=== PATIENT | male | born 1955 ===

== ENCOUNTER 2017-05-21 08:44 | Inpatient (IN) | payer OTHER ==
[2017-05-17 12:08] VITALS: BMI 27.1
[2017-05-21] MEDS ORDERED: THROMBIN (BOVINE) 5,000 UNIT VIAL TP ONE ×4 (12:35→16:39)
[2017-05-21] MEDS ORDERED: HEPARIN NA (PORCINE) 5,000 UNITS/ML 1ML VIAL ONE (12:35)
[2017-05-21] MEDS ORDERED: MIDAZOLAM HCL 2 MG/2 ML SINGLE DOSE VIAL ONE (12:42)
[2017-05-21] MEDS ORDERED: fentaNYL CITRATE 250 MCG/5 ML VIAL ONE ×4 (12:42→15:34)
[2017-05-21] MEDS ORDERED: SUCCINYLCHOLINE CHLORIDE 200 MG/10 ML VIAL ONE (12:42)
[2017-05-21] MEDS ORDERED: PROPOFOL 20 ML ONE ×9 (12:42→15:41)
[2017-05-21] MEDS ORDERED: ONDANSETRON 4 MG/2 ML VIAL ONE (12:44)
[2017-05-21] MEDS ORDERED: DEXAMETHASONE SOD PHOSPHATE 4 MG/1 ML VIAL ONE ×2 (12:44→14:35)
[2017-05-21] MEDS ORDERED: LIDOCAINE HCL/PF 2% SDV 5ML VIAL ONE (12:44)
[2017-05-21] MEDS ORDERED: VANCOMYCIN 1,000 MG VIAL (RESTRICTED TO ID ONLY) IVPB ONE (13:00)
[2017-05-21] MEDS ORDERED: ceFAZolin SODIUM 1 GM VIAL IVPB ONE (14:00)
[2017-05-21] MEDS ORDERED: TRANEXAMIC ACID 1000 MG/10 ML VIAL ONE (14:00)
[2017-05-21] MEDS ORDERED: ceFAZolin SODIUM 1 GM VIAL ONE ×2 (14:00→16:34)
[2017-05-21] MEDS ORDERED: VANCOMYCIN 1,000 MG VIAL (RESTRICTED TO ID ONLY) ONE (14:00)
[2017-05-21] MEDS ORDERED: ROCURONIUM BROMIDE 50 MG/5 ML VIAL ONE (14:57)
[2017-05-21] MEDS ORDERED: LABETALOL HCL 5 MG/1 ML (100MG/20 ML VIAL) ONE (15:34)
[2017-05-21] MEDS ORDERED: NEOSTIGMINE METHYLSULFATE 0.5 MG/ML - 10 ML MDV ONE (15:38)
[2017-05-21] MEDS ORDERED: GLYCOPYRROLATE 0.2 MG/1 ML VIAL ONE ×2 (15:39→16:07)
[2017-05-21] MEDS ORDERED: GELATIN, ABSORBABLE 100 EACH SPONGE TP ONE (15:39)
[2017-05-21] MEDS ORDERED: HYDROmorphone *PCA* 6MG/30ML DISP.SYRIN PCA ONE (18:32)
--- NOTE | 2017-05-21 18:34 | OP ---
Operative Note - Note: Operative Date: 05/21/17 Pre-Operative Diagnosis: Adjacent level thoracolumbar spinal stenosis. Lumbosacral instability Operation: 1. ESSIE L2-L4. 2. T12, L1 laminectomies. 3. T10-S1 PISF Post-Operative Diagnosis: Same as Pre-op Surgeon: Marbin Lee Head Doffer: Pedro Lee (Co-Surgeon) Anesthesiologist/RAILROAD SIGNAL OPERATOR: Carrillo Stubbs Anesthesia: General Specimens Removed: L2-L4 Hardware Estimated Blood Loss (mls): 600 Drains & Tubes with Location: 1 x deep & 1 x superficial HemoVac. 1 shared HemoVac reservoir Blood Volume Replaced (mls): 250 (Cell Saver) Fluid Volume Replaced (mls): 2,300 (Crystalloid) Operative Report Dictated: Yes
[2017-05-21] MEDS ORDERED: ONDANSETRON 4 MG/2 ML VIAL IVPUSH PRN ×2 (18:36→18:37)
[2017-05-21] MEDS ORDERED: PROMETHAZINE HCL 25 MG/1 ML VIAL IVPB PRN (18:36)
[2017-05-21] MEDS ORDERED: DEXAMETHASONE SOD PHOSPHATE 4 MG/1 ML VIAL IVPUSH PRN (18:36)
--- NOTE | 2017-05-21 18:37 | PN ---
Progress Note (short form) - Note Progress Note: 62M s/p ESSIE L2-L4, T12 & L1 laminectomies, T10-S1 PISF POD #0. 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 -Mechanical DVT PPx. only: COURT's, SCD's. -Incentive spirometry; aggressive pulmonary toilet. -NPO until flatus, then advance diet as tolerated. -Wilhelm catheter care; d/c Wilhelm catheter when ambulating. -Yodit-op abx. x 24 hrs: Ancef, Vancomycin. -PT/OT/Rehab, OOB. -WBAT B/L LE. -Admit to ICU post-op. -Care per medical hospitalist team. -Discharge planning. -Will follow. Marbin Lee MD (Orthopaedic Surgery).
[2017-05-21] MEDS ORDERED: HYDROmorphone *PCA* 6MG/30ML DISP.SYRIN PCA SCH (18:45)
[2017-05-21] MEDS ORDERED: KETOROLAC TROMETHAMINE 15 MG/ML VIAL ONE (19:08)
[2017-05-21] MEDS ORDERED: ACETAMINOPHEN INJECTION 100 ML IVPB ONE (19:09)
[2017-05-21] MEDS: KETOROLAC TROMETHAMINE 30 MG/1 ML VIAL IVPUSH PRN (19:12)
[2017-05-21] MEDS: ACETAMINOPHEN 1000 MG/100 ML VIAL (NON FORMULARY) IVPB SCH (19:15)
[2017-05-21] MEDS: LORazepam 2 MG/ML SDV VIAL IVPUSH PRN ×2 (19:20→21:17)
[2017-05-21] MEDS: LACTATED RINGERS SOLUTION 1,000 ML IV SCH (19:50)
[2017-05-21] MEDS ORDERED: HYDROmorphone HCL CARPU-JECT 1 MG/1 ML DISP.SYRIN IVPUSH PRN (21:00)
--- NOTE | 2017-05-21 21:14 | CONSULT ---
Consult Consult Specialty:: Pulmonary Critical Care Reason for Consultation:: Post op monitoring - History of Present Illness History of Present Illness: Pt is a 62 yo with h/o adjacent level thoracolumbar spinal stenosis who is admitted to the ICU post ESSIE L2-L4, T12 and L1 laminectomies, T10-S1 PISF. Admitted to ICU for close monitoring, hemodynamically stable in the ICU, pain. Additional pain management ordered. Active Medications Acetaminophen (Ofirmev Injection -) 1,000 mg IVPB Q8H [facility] Stop: 05/22/17 10:46 Last Admin: 05/21/17 19:15 Dose: 1,000 mg Dexamethasone Sodium Phosphate (Decadron Injection -) 4 mg IVPUSH ONCE PRN PRN Reason: NAUSEA AND/OR VOMITING Diphenhydramine HCl (Benadryl Injection -) 12.5 mg IVPUSH ONCE PRN PRN Reason: FOR ITCHING Hydromorphone HCl (Dilaudid Senior Label Specialist -) 0 mg JITTERBUG OPERATOR JITTERBUG OPERATOR RAY PRN Reason: Protocol Stop: 05/28/17 18:36 Last Admin: 05/21/17 18:45 Dose: 6 mg Hydromorphone HCl (Dilaudid Injection -) 0.5 mg IVPUSH Q4H PRN PRN Reason: PAIN Cefazolin Sodium (Ancef 1 Gm Premixed Ivpb -) 1 gm in 50 mls @ 100 mls/hr IVPB Q8H [facility] Stop: 05/23/17 07:59 Lactated Ringer's (Lactated Ringers Solution) 1,000 mls @ 100 mls/hr IV ASDIR RAY Vancomycin HCl 1,000 mg/ (Dextrose) 250 mls @ 250 mls/hr IVPB ONCE ONE Stop: 05/22/17 01:59 Ketorolac Tromethamine (Toradol Injection -) 15 mg IVPUSH Q6H PRN PRN Reason: PAIN LEVEL 6-10 Stop: 05/26/17 18:36 Last Admin: 05/21/17 19:12 Dose: 15 mg Lorazepam (Ativan Injection -) 1 mg IVPUSH TID PRN PRN Reason: MUSCLE SPASMS Last Admin: 05/21/17 19:20 Dose: 1 mg Lorazepam (Ativan Injection -) 1 mg IVPUSH Q6H PRN PRN Reason: ANXIETY Stop: 04/03/18 21:00 Ondansetron HCl (Zofran Injection) 4 mg IVPUSH Q4H PRN PRN Reason: NAUSEA AND/OR VOMITING Ondansetron HCl (Zofran Injection) 4 mg IVPUSH Q6H PRN PRN Reason: NAUSEA AND/OR VOMITING Promethazine HCl (Phenergan Injection -) 12.5 mg IVPB Q6H PRN PRN Reason: NAUSEA AND/OR VOMITING - Alcohol/Substance Use Hx Alcohol Use: No - Smoking History Smoking history: Current every day smoker Have you smoked in the past 12 months: Yes Aproximately how many cigarettes per day: 5 Home Medications - Allergies Allergies/Adverse Reactions: Allergies Allergy/AdvReac Type Severity Reaction Status Date / Time No Known Allergies Allergy Verified 05/21/17 09:12 - Home Medications Home Medications: Ambulatory Orders Atorvastatin Ca [Lipitor] 20 mg PO DAILY 05/17/17 Oxycodone HCl 30 mg PO TID 05/17/17 Physical Exam Vital Signs: Vital Signs Temperature 97.2 F L 05/21/17 20:00 Pulse Rate 61 05/21/17 20:00 Respiratory Rate 16 05/21/17 20:00 Blood Pressure 137/72 05/21/17 20:00 O2 Sat by Pulse Oximetry (%) 100 05/21/17 19:50 Constitutional: Yes: Mild Distress Cardiovascular: Yes: Regular Rate and Rhythm Respiratory: Yes: CTA Bilaterally, Other (HemoVac drain inplace) Gastrointestinal: Yes: WNL Edema: No Neurological: Yes: Other Assessment/Plan Pt is a 62 yo with h/o adjacent level thoracolumbar spinal stenosis who is admitted to the ICU post ESSIE L2-L4, T12 and L1 laminectomies, T10-S1 PISF -pain management with dilaudid JITTERBUG OPERATOR -antiemetics prn -ativan prn -supplemental O2 -cefazolin/vanco given in OR -maintenance fluids -NPO for now -IS -post op CBC -monitor drain output -venodynes -no indication for GI ppx DEBOARH Castro Critical Care time: 35 min
[2017-05-21] MEDS ORDERED: morphine CARPU-JECT 4 MG/1 ML DISP.SYRIN IVPUSH PRN (21:15)
[2017-05-21 21:43] LABS: HEMATOCRIT 33.3 % (35.4-49); HEMOGLOBIN 11.4 GM/dL (11.7-16.9); MCH 30.4 pg (25.7-33.7); MCHC 34.3 g/dl (32.0-35.9); MEAN CELL VOLUME 88.7 fl (80-96); MEAN PLT VOLUME 7.5 fl (7.5-11.1); PLATELET COUNT 246 K/MM3 (134-434); RBC 3.76 M/mm3 (4.00-5.60); RDW 13.5 % (11.9-15.9); WHITE BLOOD COUNT 14.9 K/mm3 (4.0-10.0)
[2017-05-21] MEDS: HYDROmorphone *PCA* 10MG/50ML DISP.SYRIN PCA SCH (22:30)
[2017-05-21] MEDS ORDERED: HYDROmorphone *PCA* 10MG/50ML DISP.SYRIN PCA ONE (22:46)
[2017-05-22] MEDS ORDERED: VANCOMYCIN 1,000 MG in DEXTROSE 5%-WATER - 250 ML IVPB ONE (01:00)
[2017-05-22] MEDS ORDERED: VANCOMYCIN 1 GRAM (PRE-DOCKED) 1,000 MG/250 ML BAG IVPB ONE (01:00)
--- NOTE | 2017-05-22 01:39 | OP ---
DATE OF OPERATION: 05/21/2017 SURGEON: Marbin Lee MD CO-SURGEON: Pedro Lee MD PREOPERATIVE DIAGNOSES: Lumbosacral pseudoarthrosis with adjacent level stenosis, kyphosis, and segmental instability of T12-L1. POSTOPERATIVE DIAGNOSES: Lumbosacral pseudoarthrosis with adjacent level stenosis, kyphosis, and segmental instability of T12-L1. OPERATION PERFORMED: 1. Removal of hardware L1, L2, L3, L4. 2. Inspection of fusion mass. 3. Revision laminectomy, T12-L1, that is both the lamina of T12 and L1 resected with undercutting facetectomy. 4. Pedicle screw instrumentation, T10 to S1, left and right-hand side. 5. Posterolateral arthrodesis, T10 to S1, left and right-hand side. 6. Use of biplane fluoroscopy and intraoperative neuromonitoring. 7. Use of bone marrow aspirate concentrate with autologous allografting 8. Complex wound closure 35cm. ANESTHESIA: General. ANTIBIOTICS GIVEN: Kefzol 2 g, vancomycin 1 g, Kefzol 1 g given at the end of the procedure, that is at the time of the instrumentation. BLOOD LOSS: Approximately 600 mL. DESCRIPTION OF PROCEDURE: Patient was correctly identified, brought to the operating room, placed prone on gel pads. The lumbar spine was prepped in the routine manner with Betadine scrub solution, wiped off with alcohol, DuraPrep applied. The spine was draped in the routine window-drape fashion, exposing the spine from the upper part of the thoracic spine right down to the cleft of the buttocks. Midline incision utilized. The original wound was opened and extended proximally as well as distally. This gave easy access to the entire spine. The hardware was dissected first by finding the crosslink and then tracing laterally to the level of the screw heads and oblique incision made to free all the soft tissue off the screws and the appropriate hardware removed both left and right-hand side. The screws were loose at L1 as well as L2, more firmly seated at L3-4. The infusion mass was inspected, found to have a pseudoarthrosis at L5-S1. This was taken down using Leksell rongeurs at all fibrous tissue, down to bleeding healthy bone noted. With subperiosteal dissection, the dissection was taken from T9 right down to the level of L1. Subperiosteal dissection performed, exposing the transverse process of thoracic spine as well as the thoracolumbar junction, right down to the and to match up with the original fusion mass which was freed of soft tissue and rongeured so there was healthy bleeding bone bed noted. At that point, at the junction point of the original fusion mass and the mobile segments, the lamina of T12 and the lamina of L1 were resected using Kerrison upcuts. All ligamentum flavum a complete decompression at this level achieved, freeing the spinal cord completely. No complications in doing this. The pedicles of T10 and T11 were entered by performing Augustus osteotomies. The screws were seated using anatomical guidelines as well as lateral fluoroscopic x-rays. All screws were inserted from T10 right down to S1. Each pedicle was drilled with a 4.5 drill. Each pedicle palpated with bolt feeler, found to be well within the confines of the bone bed, and each screw seated without any complications. The majority of the screws measured 40 x 7.5. At L1, we used 8.5 x 40 screws. The rest of the thoracic screws were 6.5 x 40 screws. Each screw was tested with intraoperative neuromonitoring. Each screw was found to be well above the safety parameters. The rods were contoured unto the screw heads, fixed solidly with the appropriate caps, and then tightened with a torque device. Two crosslinks applied. Once the entire procedure had now been completed, the muscle was gently lifted off the lateral surfaces of the bone bed as well as the intertransverse plane and packed with a combination of autologous as well as allograft bone. Prior to that, 120 mL of marrow aspirate were obtained from the left posterior ilium. This brought about a rich mixing of stem cells, the CD34 cells into the bone graft itself. This was packed solid into position with allograft strips all along the intertransverse plain.. No complications noted. X-rays revealed excellent positioning of all implants. At that point, we elected to close the wound. This was a complex wound closure measuring 35 cm. The deep muscle was closed with 1 Vicryl, fascia with 1 Vicryl, subcutaneous 1 and 2-0 Vicryl in 2 layers and then 3-0 Monocryl with Steri-Strips. Drainage times two 1/8-inch Hemovac deep and 1-inch Hemovac superficially. Operation went well. No complications. MD FRANKIE Jeffers/[id number] MTDD
[2017-05-22] MEDS: LACTATED RINGERS SOLUTION 1,000 ML IV SCH (02:00)
[2017-05-22] MEDS: ACETAMINOPHEN 1000 MG/100 ML VIAL (NON FORMULARY) IVPB SCH ×2 (02:04→10:34)
[2017-05-22] MEDS: LORazepam 2 MG/ML SDV VIAL IVPUSH PRN ×2 (02:19→21:36)
[2017-05-22] MEDS: morphine SULFATE 4 MG/ML VIAL IVPUSH PRN ×2 (03:54→21:35)
[2017-05-22] MEDS ORDERED: morphine CARPU-JECT 4 MG/1 ML DISP.SYRIN IVPUSH ONE (05:27)
[2017-05-22] MEDS ORDERED: morphine CARPU-JECT 2 MG/1 ML DISP.SYRIN IVPUSH ONE (05:32)
[2017-05-22] MEDS ORDERED: morphine SULFATE 4 MG/ML VIAL IVPUSH ONE (05:32)
[2017-05-22 06:19] LABS: HEMATOCRIT 31.4 % (35.4-49); MCH 31.1 pg (25.7-33.7); MCHC 35.1 g/dl (32.0-35.9); MEAN CELL VOLUME 88.7 fl (80-96); MEAN PLT VOLUME 8.1 fl (7.5-11.1); PLATELET COUNT 270 K/MM3 (134-434); RBC 3.54 M/mm3 (4.00-5.60); RDW 13.8 % (11.9-15.9); WHITE BLOOD COUNT 20.1 K/mm3 (4.0-10.0)
[2017-05-22 06:44] LABS: CHLORIDE 102 mmol/L (98-107); POTASSIUM 3.8 mmol/L (3.5-5.1); SODIUM 137 mmol/L (136-145)
[2017-05-22 06:49] LABS: ANION GAP 9 (8-16); BLOOD UREA NITROGEN 14 mg/dL (7-18); CALCIUM 8.2 mg/dL (8.5-10.1); CO2 26 mmol/L (21-32); CREATININE 0.8 mg/dL (0.7-1.3); GLUCOSE,RANDOM 119 mg/dL (74-106)
[2017-05-22] MEDS: KETOROLAC TROMETHAMINE 30 MG/1 ML VIAL IVPUSH PRN ×2 (09:40→15:58)
--- NOTE | 2017-05-22 12:26 | PN ---
Teaching Attending Note Name of Resident: Sarah Shah ATTENDING PHYSICIAN STATEMENT I saw and evaluated the patient. I reviewed the resident's note and discussed the case with the resident. I agree with the resident's findings and plan as documented. SUBJECTIVE: Patient seen and examined in the ICU. Agitated but appropriate. Reports some back pain, but according to the RN, he has not been utilizing his MANAGER OF INFORMATION. Intake & Output 05/19/17 05/20/17 05/21/17 05/22/17 23:59 23:59 23:59 23:59 Intake Total 3350 1256 Output Total 1410 1175 Balance 1940 81 Weight 167 lb 7 oz 167 lb 7 oz Last Vital Signs Temp Pulse Resp BP Pulse Ox 98 F 82 18 120/62 98 05/22/17 06:00 05/22/17 10:00 05/22/17 10:00 05/22/17 10:00 05/21/17 22:00 Active Medications Dexamethasone Sodium Phosphate (Decadron Injection -) 4 mg IVPUSH ONCE PRN PRN Reason: NAUSEA AND/OR VOMITING Diphenhydramine HCl (Benadryl Injection -) 12.5 mg IVPUSH ONCE PRN PRN Reason: FOR ITCHING Hydromorphone HCl (Dilaudid Canvas Cutter Machine -) 0 mg MANAGER OF INFORMATION MANAGER OF INFORMATION RAY PRN Reason: Protocol Stop: 05/28/17 22:29 Last Admin: 05/21/17 22:30 Dose: 0.2 mg Cefazolin Sodium (Ancef 1 Gm Premixed Ivpb -) 1 gm in 50 mls @ 100 mls/hr IVPB Q8H RAY Stop: 05/23/17 07:59 Lactated Ringer's (Lactated Ringers Solution) 1,000 mls @ 100 mls/hr IV ASDIR RAY Last Admin: 05/22/17 02:00 Dose: 100 mls/hr Ketorolac Tromethamine (Toradol Injection -) 15 mg IVPUSH Q6H PRN PRN Reason: PAIN LEVEL 6-10 Stop: 05/26/17 18:36 Last Admin: 05/22/17 09:40 Dose: 15 mg Lorazepam (Ativan Injection -) 1 mg IVPUSH TID PRN PRN Reason: MUSCLE SPASMS Last Admin: 05/21/17 19:20 Dose: 1 mg Lorazepam (Ativan Injection -) 1 mg IVPUSH Q6H PRN PRN Reason: ANXIETY Stop: 05/22/17 21:00 Last Admin: 05/22/17 02:19 Dose: 1 mg Morphine Sulfate (Morphine Sulfate) 4 mg IVPUSH Q4H PRN PRN Reason: PAIN LEVEL 4 - 6 Last Admin: 05/22/17 03:54 Dose: 4 mg Ondansetron HCl (Zofran Injection) 4 mg IVPUSH Q4H PRN PRN Reason: NAUSEA AND/OR VOMITING Ondansetron HCl (Zofran Injection) 4 mg IVPUSH Q6H PRN PRN Reason: NAUSEA AND/OR VOMITING Promethazine HCl (Phenergan Injection -) 12.5 mg IVPB Q6H PRN PRN Reason: NAUSEA AND/OR VOMITING Constitutional: Yes: Awake and appropriate Cardiovascular: Yes: Regular Rate and Rhythm Respiratory: Yes: CTA Bilaterally, Other (HemoVac drain inplace) Gastrointestinal: Yes: WNL Edema: No Neurological: Yes: Non-focal Laboratory Results - last 24 hr 05/21/17 05/22/17 05/22/17 21:20 05:05 05:05 WBC 14.9 H 20.1 H D RBC 3.76 L 3.54 L Hgb 11.4 L 11.0 L Hct 33.3 L 31.4 L MCV 88.7 88.7 MCH 30.4 31.1 MCHC 34.3 35.1 RDW 13.5 13.8 Plt Count 246 270 MPV 7.5 8.1 Sodium 137 Potassium 3.8 Chloride 102 Carbon Dioxide 26 Anion Gap 9 BUN 14 Creatinine 0.8 Random Glucose 119 H Calcium 8.2 L Assessment/Plan POD #1 ESSIE L2-L4, T12 and L1 laminectomies, T10-S1 PISF Thoracolumbar spinal stenosis -pain management with dilaudid MANAGER OF INFORMATION -antiemetics prn -ativan prn -supplemental O2 -cefazolin/vanco given in OR -IVF -PO as tolerated -Incentive Spirometry -monitor drain output -Mechanical VTE prophylaxis Dr Colón Critical care time spent in reviewing chart, evaluating patient and formulating plan - 36 minutes.
--- NOTE | 2017-05-22 12:34 | PN ---
Progress Note (short form) - Note Progress Note: Anesthesia POD#1 S/P T1-T12 Laminectomy and Posterior Instrumentation/Fusion under GA and IV SUPERINTENDENT SANITATION VSS,no N/V, still NPO. Will need the SUPERINTENDENT SANITATION A/P Continue the SUPERINTENDENT SANITATION Mitzi Hastings MD.
--- NOTE | 2017-05-22 13:50 | PN ---
Physical Exam: SUBJECTIVE: Mr. Buitrago reports he is currently having back pain at his surgery site somewhat relieved by RESTAURANT MANAGER which he keeps forgetting about. OBJECTIVE: Vital Signs Period Temp Pulse Resp BP Sys/David Pulse Ox Last 24 Hr 97.2 F-98.6 F 54-88 14-19 100-157/42-83 97-100 GENERAL: The patient is awake, alert, and fully oriented, in no acute distress. HEAD: Normal with no signs of trauma. EYES: PERRL, extraocular movements intact, sclera anicteric, conjunctiva clear. No ptosis. ENT: Ears normal, nares patent, oropharynx clear without exudates, moist mucous membranes. NECK: Trachea midline, full range of motion, supple. LUNGS: Breath sounds equal, clear to auscultation bilaterally, no wheezes, no crackles, no accessory muscle use. HEART: Regular rate and rhythm, S1, S2 without murmur, rub or gallop. ABDOMEN: Soft, nontender, nondistended, normoactive bowel sounds, no guarding, no rebound, no hepatosplenomegaly, no masses. EXTREMITIES: 2+ pulses, warm, well-perfused, no edema. NEUROLOGICAL: Cranial nerves II through XII grossly intact. Normal speech, gait not observed. PSYCH: Normal mood, normal affect. SKIN: Warm, dry, normal turgor, no rashes or lesions noted Laboratory Results - last 24 hr 05/21/17 05/22/17 05/22/17 21:20 05:05 05:05 WBC 14.9 H 20.1 H D RBC 3.76 L 3.54 L Hgb 11.4 L 11.0 L Hct 33.3 L 31.4 L MCV 88.7 88.7 MCH 30.4 31.1 MCHC 34.3 35.1 RDW 13.5 13.8 Plt Count 246 270 MPV 7.5 8.1 Sodium 137 Potassium 3.8 Chloride 102 Carbon Dioxide 26 Anion Gap 9 BUN 14 Creatinine 0.8 Random Glucose 119 H Calcium 8.2 L Active Medications Generic Name Dose Route Start Last Admin Trade Name Freq PRN Reason Stop Dose Admin Dexamethasone Sodium Phosphate 4 mg 05/21/17 18:36 Decadron Injection - IVPUSH ONCE PRN NAUSEA AND/OR VOMITING Diphenhydramine HCl 12.5 mg 05/21/17 18:36 Benadryl Injection - IVPUSH ONCE PRN FOR ITCHING Hydromorphone HCl 0 mg 05/21/17 22:30 05/21/17 22:30 Dilaudid Hydraulic Press Tender - RESTAURANT MANAGER 05/28/17 22:29 0.2 mg RESTAURANT MANAGER RAY Administration Protocol Cefazolin Sodium 1 gm in 50 mls @ 100 mls/hr 05/22/17 23:30 Ancef 1 Gm Premixed Ivpb - IVPB 05/23/17 07:59 Q8H RAY Lactated Ringer's 1,000 mls @ 100 mls/hr 05/21/17 18:45 05/22/17 02:00 Lactated Ringers Solution IV 100 mls/hr ASDIR RAY Administration Ketorolac Tromethamine 15 mg 05/21/17 18:37 05/22/17 09:40 Toradol Injection - IVPUSH 05/26/17 18:36 15 mg Q6H PRN Administration PAIN LEVEL 6-10 Lorazepam 1 mg 05/21/17 18:39 05/21/17 19:20 Ativan Injection - IVPUSH 1 mg TID PRN Administration MUSCLE SPASMS Lorazepam 1 mg 05/21/17 21:01 05/22/17 02:19 Ativan Injection - IVPUSH 05/22/17 21:00 1 mg Q6H PRN Administration ANXIETY Morphine Sulfate 4 mg 05/21/17 21:27 05/22/17 03:54 Morphine Sulfate IVPUSH 4 mg Q4H PRN Administration PAIN LEVEL 4 - 6 Ondansetron HCl 4 mg 05/21/17 18:36 Zofran Injection IVPUSH Q4H PRN NAUSEA AND/OR VOMITING Ondansetron HCl 4 mg 05/21/17 18:37 Zofran Injection IVPUSH Q6H PRN NAUSEA AND/OR VOMITING Promethazine HCl 12.5 mg 05/21/17 18:36 Phenergan Injection - IVPB Q6H PRN NAUSEA AND/OR VOMITING ASSESSMENT/PLAN: Mr. Buitrago is a 62 yo male w/ pmh of thoracolumbar spinal stenosis s/p ESSIE L2- L4, T12 and L1 laminectomies, and T10-S1 PISF; POD #1. Admitted to ICU for post- op care. Respiratory - Incentive Spirometry Post-op - Pain management with dilaudid RESTAURANT MANAGER - Monitor drain output - Antiemetics as needed - Vanc and Ancef given FEN - Diet as tolerated - Will replete electrolytes as needed PPX -TEDs Disposition - Pending improvement post-op and discussion with Dr. Lee. Visit type - Emergency Visit Emergency Visit: No - New Patient This patient is new to me today: Yes Date on this admission: 05/22/17 - Critical Care Critical Care patient: Yes Total Critical Care Time (in minutes): 35 Critical Care Statement: The care of this patient involved high complexity decision making to prevent further life threatening deterioration of the patient 's condition and/or to evaluate & treat vital organ system(s) failure or risk of failure.
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
--- NOTE | 2017-05-22 18:07 | PN ---
Teaching Attending Note Name of Resident: Myke Choi ATTENDING PHYSICIAN STATEMENT I saw and evaluated the patient. I reviewed the resident's note and discussed the case with the resident. I agree with the resident's findings and plan as documented. We were called to the admission of this patient. Patient is in ICU s/p Surgery POD1 ESSIE L2-L4, T12 and L1 laminectomies, T10-S1 PISF, is on CUSTODIAN ATHLETIC EQUIPMENT pump, unable to give any Hx, hx taken from the chart. Patient is unable to give any hx. due to pain meds. Vital Signs Temperature 98.3 F 05/22/17 14:00 Pulse Rate 82 05/22/17 14:00 Respiratory Rate 18 05/22/17 14:00 Blood Pressure 126/60 05/22/17 14:00 O2 Sat by Pulse Oximetry (%) 98 05/22/17 09:00 CBCD WBC 20.1 K/mm3 (4.0-10.0) H D 05/22/17 05:05 RBC 3.54 M/mm3 (4.00-5.60) L 05/22/17 05:05 Hgb 11.0 GM/dL (11.7-16.9) L 05/22/17 05:05 Hct 31.4 % (35.4-49) L 05/22/17 05:05 MCV 88.7 fl (80-96) 05/22/17 05:05 MCHC 35.1 g/dl (32.0-35.9) 05/22/17 05:05 RDW 13.8 % (11.9-15.9) 05/22/17 05:05 Plt Count 270 K/MM3 (134-434) 05/22/17 05:05 MPV 8.1 fl (7.5-11.1) 05/22/17 05:05 CMP Sodium 137 mmol/L (136-145) 05/22/17 05:05 Potassium 3.8 mmol/L (3.5-5.1) 05/22/17 05:05 Chloride 102 mmol/L (98-107) 05/22/17 05:05 Carbon Dioxide 26 mmol/L (21-32) 05/22/17 05:05 Anion Gap 9 (8-16) 05/22/17 05:05 BUN 14 mg/dL (7-18) 05/22/17 05:05 Creatinine 0.8 mg/dL (0.7-1.3) 05/22/17 05:05 Random Glucose 119 mg/dL (74-106) H 05/22/17 05:05 Calcium 8.2 mg/dL (8.5-10.1) L 05/22/17 05:05 Current Medications Generic Name Dose Route Start Last Admin Trade Name Freq PRN Reason Stop Dose Admin Dexamethasone Sodium Phosphate 4 mg 05/21/17 18:36 Decadron Injection - IVPUSH ONCE PRN NAUSEA AND/OR VOMITING Diphenhydramine HCl 12.5 mg 05/21/17 18:36 Benadryl Injection - IVPUSH ONCE PRN FOR ITCHING Hydromorphone HCl 0 mg 05/21/17 22:30 05/21/17 22:30 Dilaudid Litigation Examiner - CUSTODIAN ATHLETIC EQUIPMENT 05/28/17 22:29 0.2 mg CUSTODIAN ATHLETIC EQUIPMENT RAY Administration Protocol Cefazolin Sodium 1 gm in 50 mls @ 100 mls/hr 05/22/17 23:30 Ancef 1 Gm Premixed Ivpb - IVPB 05/23/17 07:59 Q8H [facility] Ketorolac Tromethamine 15 mg 05/21/17 18:37 05/22/17 15:58 Toradol Injection - IVPUSH 05/26/17 18:36 15 mg Q6H PRN Administration PAIN LEVEL 6-10 Lorazepam 1 mg 05/21/17 18:39 05/21/17 19:20 Ativan Injection - IVPUSH 1 mg TID PRN Administration MUSCLE SPASMS Lorazepam 1 mg 05/21/17 21:01 05/22/17 02:19 Ativan Injection - IVPUSH 05/22/17 21:00 1 mg Q6H PRN Administration ANXIETY Morphine Sulfate 4 mg 05/21/17 21:27 05/22/17 03:54 Morphine Sulfate IVPUSH 4 mg Q4H PRN Administration PAIN LEVEL 4 - 6 Nicotine 14 mg 05/22/17 17:15 Nicoderm Patch - TD DAILY RAY Ondansetron HCl 4 mg 05/21/17 18:36 Zofran Injection IVPUSH Q4H PRN NAUSEA AND/OR VOMITING Ondansetron HCl 4 mg 05/21/17 18:37 Zofran Injection IVPUSH Q6H PRN NAUSEA AND/OR VOMITING Promethazine HCl 12.5 mg 05/21/17 18:36 Phenergan Injection - IVPB Q6H PRN NAUSEA AND/OR VOMITING Home Medications Medication Instructions Recorded Atorvastatin Ca [Lipitor] 20 mg PO DAILY 05/17/17 Oxycodone HCl 30 mg PO TID 05/17/17 PE: lying in bed comfortably. Neuro/Back exam as per 's. Heart: S1S2 positive Chest: CTABL extremities: positive for SCDs and Teds stockings a/P: This patient is a 62 yo male with no significant PMHx admitted to ICU for monitoring s/p Back surgery with Dr. Lee. #POD1 ESSIE L2-L4, T12 and L1 laminectomies, T10-S1 PISF. Pain management as per and as per anaesthesia team. DVT Px: as per , only teds and mechanical DVT PPx. only: COURT's, SCD's. Incentive spirometry, I's and O's. NPO until flatus. Elaine culture is patient spikes. #Tobacco smoking nicotine patch if needed. DVT Px: Scds, TEds
[2017-05-22] MEDS: NICOTINE 14 MG/24 HOURS TOPICAL PATCH TD SCH (22:45)
[2017-05-22] MEDS: CEFAZOLIN 1 GM/D5W 1 GM/50 ML BAG IVPB SCH (23:15)
[2017-05-23] MEDS: KETOROLAC TROMETHAMINE 30 MG/1 ML VIAL IVPUSH PRN (00:10)
[2017-05-23] MEDS ORDERED: ACETAMINOPHEN 1000 MG/100 ML VIAL (NON FORMULARY) IVPB ONE (00:13)
[2017-05-23 06:18] LABS: BASO % 0.4 % (0-2.0); EOS % 0.1 % (0-4.5); HEMATOCRIT 29.8 % (35.4-49); HEMOGLOBIN 10.4 GM/dL (11.7-16.9); LYMPH % 13.7 % (8-40); MCH 30.7 pg (25.7-33.7); MCHC 34.8 g/dl (32.0-35.9); MEAN CELL VOLUME 88.3 fl (80-96); MEAN PLT VOLUME 7.8 fl (7.5-11.1); MONO % 9.9 % (3.8-10.2); NEUT % 75.9 % (42.8-82.8); PLATELET COUNT 231 K/MM3 (134-434); RBC 3.38 M/mm3 (4.00-5.60); RDW 13.2 % (11.9-15.9); WHITE BLOOD COUNT 17.8 K/mm3 (4.0-10.0)
[2017-05-23] MEDS ORDERED: HEMOQUE TEST 1 EACH EACH ONE (06:24)
[2017-05-23] MEDS ORDERED: HYDROmorphone *PCA* 10MG/50ML DISP.SYRIN PCA SCH ×2 (07:44→10:45)
[2017-05-23 07:48] LABS: CHLORIDE 106 mmol/L (98-107); POTASSIUM 3.9 mmol/L (3.5-5.1); SODIUM 140 mmol/L (136-145)
[2017-05-23 07:54] LABS: ALBUMIN 3.2 g/dl (3.4-5.0); ALK PHOS 72 U/L (45-117); ANION GAP 7 (8-16); BILIRUBIN,TOTAL 0.9 mg/dL (0.2-1.0); BLOOD UREA NITROGEN 13 mg/dL (7-18); CO2 27 mmol/L (21-32); CREATININE 0.6 mg/dL (0.7-1.3); GLUCOSE,RANDOM 94 mg/dL (74-106); MAGNESIUM 2.2 mg/dL (1.8-2.4); PHOSPHOROUS 2.6 mg/dL (2.5-4.9); SGOT/AST 30 U/L (15-37); SGPT/ALT 36 U/L (12-78); TOT PROT 6.3 g/dl (6.4-8.2)
[2017-05-23] MEDS: CEFAZOLIN 1 GM/D5W 1 GM/50 ML BAG IVPB SCH (08:07)
--- NOTE | 2017-05-23 10:54 | PN ---
Physical Exam: SUBJECTIVE: Patient seen and examined complains of pain in back. has used ingot buggy operator pump may times about 57 times but drug delivered 6 times. denies sob, cough, chest pain. denies nausea, vomiting. reports he is passing flatus and has bowel movement yesterday. accepting soft diet. drain 100ml moving all four limbs. OBJECTIVE: Vital Signs Period Temp Pulse Resp BP Sys/David Pulse Ox Last 24 Hr 97.7 F-99.6 F 61-89 17-26 101-138/42-88 98 GENERAL: The patient is awake, alert, and fully oriented, in no acute distress. ENT: moist mucous membranes. NECK: Trachea midline, full range of motion, LUNGS: Breath sounds equal, clear to auscultation bilaterally decrease air entry at bases , no wheezes, no crackles, no accessory muscle use. HEART: s1s2 normal ABDOMEN: Soft, nontender, nondistended, normoactive bowel sounds, no guarding, masses. EXTREMITIES: warm, well-perfused, PSYCH: Normal mood, normal affect. SKIN: Warm, dry, Laboratory Results - last 24 hr 05/23/17 05/23/17 06:05 06:05 WBC 17.8 H RBC 3.38 L Hgb 10.4 L Hct 29.8 L MCV 88.3 MCH 30.7 MCHC 34.8 RDW 13.2 Plt Count 231 MPV 7.8 Neutrophils % 75.9 Lymphocytes % 13.7 Monocytes % 9.9 Eosinophils % 0.1 Basophils % 0.4 Sodium 140 Potassium 3.9 Chloride 106 Carbon Dioxide 27 Anion Gap 7 L BUN 13 Creatinine 0.6 L D Creat Clearance w eGFR > 60 Random Glucose 94 D Calcium 8.0 L Phosphorus 2.6 Magnesium 2.2 Total Bilirubin 0.9 AST 30 ALT 36 Alkaline Phosphatase 72 Total Protein 6.3 L Albumin 3.2 L Active Medications Generic Name Dose Route Start Last Admin Trade Name Freq PRN Reason Stop Dose Admin Dexamethasone Sodium Phosphate 4 mg 05/21/17 18:36 Decadron Injection - IVPUSH ONCE PRN NAUSEA AND/OR VOMITING Diphenhydramine HCl 12.5 mg 05/21/17 18:36 Benadryl Injection - IVPUSH ONCE PRN FOR ITCHING Hydromorphone HCl 10 mg 05/23/17 10:45 Dilaudid Generator Operator - MILLINERY DESIGNER 05/28/17 10:44 MILLINERY DESIGNER RAY Protocol Lorazepam 1 mg 05/21/17 18:39 05/22/17 21:36 Ativan Injection - IVPUSH 1 mg TID PRN Administration MUSCLE SPASMS Morphine Sulfate 4 mg 05/21/17 21:27 05/22/17 21:35 Morphine Sulfate IVPUSH 4 mg Q4H PRN Administration PAIN LEVEL 4 - 6 Nicotine 14 mg 05/22/17 17:15 05/22/17 22:45 Nicoderm Patch - TD 14 mg DAILY RAY Administration Ondansetron HCl 4 mg 05/21/17 18:36 Zofran Injection IVPUSH Q4H PRN NAUSEA AND/OR VOMITING Ondansetron HCl 4 mg 05/21/17 18:37 Zofran Injection IVPUSH Q6H PRN NAUSEA AND/OR VOMITING Promethazine HCl 12.5 mg 05/21/17 18:36 Phenergan Injection - IVPB Q6H PRN NAUSEA AND/OR VOMITING ASSESSMENT/PLAN: Mr. Buitrago is a 62 yo male w/ pmh of thoracolumbar spinal stenosis s/p ESSIE L2- L4, T12 and L1 laminectomies, and T10-S1 PISF; POD #2. Admitted to ICU for post- op care. Post-op - Pain management with dilaudid MILLINERY DESIGNER - Monitor drain output - Antiemetics as needed - spirometry. - physical therapy. - monitor vitals. - on phenergan for nausea/ vomiting FEN - Diet as tolerated - repeat electrolytes in am dispo: icu Visit type - Emergency Visit Emergency Visit: Yes ED Registration Date: 05/21/17 Care time: The patient presented to the Emergency Department on the above date and was hospitalized for further evaluation of their emergent condition. - New Patient This patient is new to me today: Yes Date on this admission: 05/23/17 - Critical Care Critical Care patient: Yes Total Critical Care Time (in minutes): 45 Critical Care Statement: The care of this patient involved high complexity decision making to prevent further life threatening deterioration of the patient 's condition and/or to evaluate & treat vital organ system(s) failure or risk of failure.
--- NOTE | 2017-05-23 11:36 | PN ---
Teaching Attending Note Name of Resident: Cody Clark ATTENDING PHYSICIAN STATEMENT I saw and evaluated the patient. I reviewed the resident's note and discussed the case with the resident. I agree with the resident's findings and plan as documented. SUBJECTIVE: Pt seen and examined in the ICU. Pain somewhat controlled but demanding much more than delivered on SHOPPER MARKETING MANAGER. Tolerating PO. No nausea or vomiting. No fevers or chills. OBJECTIVE: Last Vital Signs Temp Pulse Resp BP Pulse Ox 97.7 F 62 20 130/65 98 05/23/17 10:00 05/23/17 10:00 05/23/17 10:00 05/23/17 10:00 05/22/17 19:57 Intake & Output 05/20/17 05/21/17 05/22/17 05/23/17 23:59 23:59 23:59 23:59 Intake Total 3350 2056 640 Output Total 1410 2655 950 Balance 1940 599 -310 Weight 75.948 kg 75.948 kg 70.534 kg Gen: NAD at rest Heart: RRR Lung: decreased breath sounds at the bases Abd: soft, nontender Ext: no edema CBC, BMP 05/23/17 06:05 05/23/17 06:05 Active Medications Dexamethasone Sodium Phosphate (Decadron Injection -) 4 mg IVPUSH ONCE PRN PRN Reason: NAUSEA AND/OR VOMITING Diphenhydramine HCl (Benadryl Injection -) 12.5 mg IVPUSH ONCE PRN PRN Reason: FOR ITCHING Hydromorphone HCl (Dilaudid Business Analytics Intern -) 10 mg SHOPPER MARKETING MANAGER SHOPPER MARKETING MANAGER RAY PRN Reason: Protocol Stop: 05/28/17 10:44 Last Admin: 05/23/17 10:45 Dose: 10 mg Lorazepam (Ativan Injection -) 1 mg IVPUSH TID PRN PRN Reason: MUSCLE SPASMS Last Admin: 05/22/17 21:36 Dose: 1 mg Morphine Sulfate (Morphine Sulfate) 4 mg IVPUSH Q4H PRN PRN Reason: PAIN LEVEL 4 - 6 Last Admin: 05/22/17 21:35 Dose: 4 mg Nicotine (Nicoderm Patch -) 14 mg TD DAILY RAY Last Admin: 05/22/17 22:45 Dose: 14 mg Ondansetron HCl (Zofran Injection) 4 mg IVPUSH Q4H PRN PRN Reason: NAUSEA AND/OR VOMITING Ondansetron HCl (Zofran Injection) 4 mg IVPUSH Q6H PRN PRN Reason: NAUSEA AND/OR VOMITING Promethazine HCl (Phenergan Injection -) 12.5 mg IVPB Q6H PRN PRN Reason: NAUSEA AND/OR VOMITING ASSESSMENT AND PLAN: Lumbar Spinal Stenosis s/p T12-L1 Laminectomies/T10-S1 Fusion Smoker - pain control - incentive spirometry - PO as tolerated - rehab/PT - mechanical DVT prophylaxis - disposition per surgery
[2017-05-23] MEDS ORDERED: PT OWN MED DRAWER 7, Y5N ONE (11:38)
[2017-05-23] MEDS: NICOTINE 14 MG/24 HOURS TOPICAL PATCH TD SCH (11:40)
--- NOTE | 2017-05-23 12:26 | PATH ---
Surgical Pathology Report Patient Name: OSMAR CHANEY Med. Rec. #: [id number] /Age/Gender: 1955 (Age: 62) / M Account: [id number] Location: ICU JUNIOR WEB DEVELOPER Taken: 05/21/2017 Received: 05/22/2017 Reported: 05/23/2017 Physicians: Marbin Lee M.D. Specimen(s) Received OLD HARDWARE Clinical History Lumbar stenosis and instrumental instability Final Diagnosis ORTHOPEDIC HARDWARE, BACK, REMOVAL: ORTHOPEDIC HARDWARE INCLUDING METALLIC SCREWS AND RODS (GROSS ONLY). Electronically Signed Eulalio Patricia M.D. Gross Description Received fresh labeled "old hardware," are 2 martinez metallic, bent rods averaging 9.7 cm in length. Also received is in the same container are 8 peguero metallic screws averaging 5.5 cm in length as well as 8 peguero metallic smaller screws averaging 0.4 cm in length. Separately received within the same container is a 5.8 x 1.4 x 0.9 cm yellow metallic portion of hardware. No soft tissue is present. No sections are submitted, gross only. /05/22/2017 saudi05/22/2017
--- NOTE | 2017-05-23 13:44 | PN ---
Progress Note (short form) - Note Progress Note: Pain Management Rounds Patient seen in bed, still in 9/10 pain, 150 demands and 30 deliveries in the last 8 hours. Continuous dose of 0.2 mg hydrocodone added this morning by health center manager. Will increase demand dose to 0.4mg per demand and 4 hour limit increase to 12mg Will continue to follow.
[2017-05-23] MEDS: HYDROmorphone *PCA* 10MG/50ML DISP.SYRIN PCA SCH ×2 (13:45→17:35)
--- NOTE | 2017-05-23 13:48 | PN ---
Teaching Attending Note Name of Resident: Myke Choi ATTENDING PHYSICIAN STATEMENT I saw and evaluated the patient. I reviewed the resident's note and discussed the case with the resident. I agree with the resident's findings and plan as documented. SUBJECTIVE: Patient complains of back pain. OBJECTIVE: Vital Signs Period Temp Pulse Resp BP Sys/David Pulse Ox Last 24 Hr 97.7 F-99.6 F 61-89 17-26 111-147/48-88 98 HEART: S1S2, RRR LUNGS: Clear ABDOMEN: Soft, non-tender, non-distended, normal BS EXTREMITIES: No edema Laboratory Results - last 24 hr 05/23/17 05/23/17 06:05 06:05 WBC 17.8 H RBC 3.38 L Hgb 10.4 L Hct 29.8 L MCV 88.3 MCH 30.7 MCHC 34.8 RDW 13.2 Plt Count 231 MPV 7.8 Neutrophils % 75.9 Lymphocytes % 13.7 Monocytes % 9.9 Eosinophils % 0.1 Basophils % 0.4 Sodium 140 Potassium 3.9 Chloride 106 Carbon Dioxide 27 Anion Gap 7 L BUN 13 Creatinine 0.6 L D Creat Clearance w eGFR > 60 Random Glucose 94 D Calcium 8.0 L Phosphorus 2.6 Magnesium 2.2 Total Bilirubin 0.9 AST 30 ALT 36 Alkaline Phosphatase 72 Total Protein 6.3 L Albumin 3.2 L Current Medications Generic Name Dose Route Start Last Admin Trade Name Freq PRN Reason Stop Dose Admin Dexamethasone Sodium Phosphate 4 mg 05/21/17 18:36 Decadron Injection - IVPUSH ONCE PRN NAUSEA AND/OR VOMITING Diphenhydramine HCl 12.5 mg 05/21/17 18:36 Benadryl Injection - IVPUSH ONCE PRN FOR ITCHING Hydromorphone HCl 10 mg 05/23/17 13:42 Dilaudid Cotton Bag Sewer - ASSEMBLY PERSON 05/28/17 10:44 ASSEMBLY PERSON RAY Protocol Lorazepam 1 mg 05/21/17 18:39 05/22/17 21:36 Ativan Injection - IVPUSH 1 mg TID PRN Administration MUSCLE SPASMS Morphine Sulfate 4 mg 05/21/17 21:27 05/22/17 21:35 Morphine Sulfate IVPUSH 4 mg Q4H PRN Administration PAIN LEVEL 4 - 6 Nicotine 14 mg 05/22/17 17:15 05/23/17 11:40 Nicoderm Patch - TD 14 mg DAILY RAY Administration Ondansetron HCl 4 mg 05/21/17 18:36 Zofran Injection IVPUSH Q4H PRN NAUSEA AND/OR VOMITING Ondansetron HCl 4 mg 05/21/17 18:37 Zofran Injection IVPUSH Q6H PRN NAUSEA AND/OR VOMITING Promethazine HCl 12.5 mg 05/21/17 18:36 Phenergan Injection - IVPB Q6H PRN NAUSEA AND/OR VOMITING ASSESSMENT AND PLAN: This is a 62 year old man with no significant history who was admitted to the ICU after back surgery for spinal stenosis. 1. Thoracic and lumbar spinal stenosis - s/p L2-L4 removal of hardware, T12 and L1 laminectomies, T10-S1 fusion 05/22 - Continue pain control - Physical therapy 2. Nicotine dependence - Continue nicotine patch
[2017-05-23] MEDS: morphine SULFATE 4 MG/ML VIAL IVPUSH PRN ×2 (15:53→22:35)
--- NOTE | 2017-05-23 17:33 | PN ---
Physical Exam: SUBJECTIVE: Patient seen and examined at bedside. Pain controlled. Patient has passed flatus, but has not had BM yet. Patient increasingly restless overnight. OBJECTIVE: Vital Signs Period Temp Pulse Resp BP Sys/David Pulse Ox Last 24 Hr 97.7 F-99.6 F 61-93 17-26 111-147/48-88 98 GENERAL: The patient is drowsy but arousable easily 2/2 pain medications. HEAD: Normal with no signs of trauma. LUNGS: Breath sounds equal, clear to auscultation bilaterally, no wheezes, no crackles, no accessory muscle use. HEART: Regular rate and rhythm, S1, S2 without murmur, rub or gallop. ABDOMEN: Soft, nontender, nondistended, normoactive bowel sounds, no guarding, no rebound, no hepatosplenomegaly, no masses. EXTREMITIES: 2+ pulses, warm, well-perfused, no edema. NEUROLOGICAL: Cranial nerves II through X grossly intact. Normal speech, gait not observed. PSYCH: Normal mood, normal affect. SKIN: Warm, dry, normal turgor, no rashes or lesions noted Laboratory Results - last 24 hr 05/23/17 05/23/17 06:05 06:05 WBC 17.8 H RBC 3.38 L Hgb 10.4 L Hct 29.8 L MCV 88.3 MCH 30.7 MCHC 34.8 RDW 13.2 Plt Count 231 MPV 7.8 Neutrophils % 75.9 Lymphocytes % 13.7 Monocytes % 9.9 Eosinophils % 0.1 Basophils % 0.4 Sodium 140 Potassium 3.9 Chloride 106 Carbon Dioxide 27 Anion Gap 7 L BUN 13 Creatinine 0.6 L D Creat Clearance w eGFR > 60 Random Glucose 94 D Calcium 8.0 L Phosphorus 2.6 Magnesium 2.2 Total Bilirubin 0.9 AST 30 ALT 36 Alkaline Phosphatase 72 Total Protein 6.3 L Albumin 3.2 L Active Medications Generic Name Dose Route Start Last Admin Trade Name Freq PRN Reason Stop Dose Admin Dexamethasone Sodium Phosphate 4 mg 05/21/17 18:36 Decadron Injection - IVPUSH ONCE PRN NAUSEA AND/OR VOMITING Diphenhydramine HCl 12.5 mg 05/21/17 18:36 Benadryl Injection - IVPUSH ONCE PRN FOR ITCHING Hydromorphone HCl 10 mg 05/23/17 13:42 05/23/17 13:45 Dilaudid Cap And Hat Production Supervisor - SUBSTATION OPERATOR CHIEF 05/28/17 10:44 10 mg SUBSTATION OPERATOR CHIEF RAY Administration Protocol Lorazepam 1 mg 05/21/17 18:39 05/22/17 21:36 Ativan Injection - IVPUSH 1 mg TID PRN Administration MUSCLE SPASMS Morphine Sulfate 4 mg 05/21/17 21:27 05/23/17 15:53 Morphine Sulfate IVPUSH 4 mg Q4H PRN Administration PAIN LEVEL 4 - 6 Nicotine 14 mg 05/22/17 17:15 05/23/17 11:40 Nicoderm Patch - TD 14 mg DAILY RAY Administration Ondansetron HCl 4 mg 05/21/17 18:36 Zofran Injection IVPUSH Q4H PRN NAUSEA AND/OR VOMITING Ondansetron HCl 4 mg 05/21/17 18:37 Zofran Injection IVPUSH Q6H PRN NAUSEA AND/OR VOMITING Promethazine HCl 12.5 mg 05/21/17 18:36 Phenergan Injection - IVPB Q6H PRN NAUSEA AND/OR VOMITING ASSESSMENT/PLAN: The patient is a 62 yo m w/ no PMH admitted to ICU for monitoring s/p ESSIE L2-L4 , T12 and L1 laminectomies, T10-S1 PISF. with Dr. Lee. #POD1 ESSIE L2-L4, T12 and L1 laminectomies, T10-S1 PISF. -Management as per Dr. Lee: -Pain control as per anaesthesia team/ ICU team. -Mechanical DVT PPx. only: COURT's, SCD's. -Incentive spirometry -pulmonary toilet. -pt OOB to chair today. Will start PT -drain w/ moderate output -f/u ucx, bcx -patient is a smoker, will administer nicotine patch #FEN -no fluids indicated -monitor lytes -soft diet #Prophy -mechanical DVT prophy as per Dr. Lee #Dispo -admit to ICU for close monitoring Visit type - Emergency Visit Emergency Visit: Yes ED Registration Date: 05/21/17 Care time: The patient presented to the Emergency Department on the above date and was hospitalized for further evaluation of their emergent condition. - New Patient This patient is new to me today: No - Critical Care Critical Care patient: Yes Total Critical Care Time (in minutes): 38 Critical Care Statement: The care of this patient involved high complexity decision making to prevent further life threatening deterioration of the patient 's condition and/or to evaluate & treat vital organ system(s) failure or risk of failure.
[2017-05-23] MEDS: DOCUSATE SODIUM 100 MG CAPSULE (FP) PO SCH (22:00)
[2017-05-24] MEDS: LORazepam 2 MG/ML SDV VIAL IVPUSH PRN (01:39)
[2017-05-24] MEDS: HYDROmorphone *PCA* 10MG/50ML DISP.SYRIN PCA SCH ×5 (01:47→23:39)
[2017-05-24] MEDS: DOCUSATE SODIUM 100 MG CAPSULE (FP) PO SCH ×3 (06:02→22:38)
[2017-05-24] MEDS ORDERED: ONDANSETRON 4 MG/2 ML VIAL IVPUSH PRN (07:37)
[2017-05-24] MEDS ORDERED: morphine SULFATE 4 MG/ML VIAL IVPUSH PRN (07:37)
[2017-05-24] MEDS ORDERED: LORazepam 2 MG/ML SDV VIAL IVPUSH PRN (07:37)
[2017-05-24 07:43] LABS: BASO % 0.4 % (0-2.0); EOS % 0.8 % (0-4.5); HEMATOCRIT 32.2 % (35.4-49); LYMPH % 17.6 % (8-40); MCH 30.2 pg (25.7-33.7); MCHC 34.3 g/dl (32.0-35.9); MEAN PLT VOLUME 7.7 fl (7.5-11.1); MONO % 10.3 % (3.8-10.2); NEUT % 70.9 % (42.8-82.8); PLATELET COUNT 239 K/MM3 (134-434); RBC 3.65 M/mm3 (4.00-5.60); RDW 13.1 % (11.9-15.9); WHITE BLOOD COUNT 16.3 K/mm3 (4.0-10.0)
[2017-05-24 08:24] LABS: CHLORIDE 103 mmol/L (98-107); POTASSIUM 3.7 mmol/L (3.5-5.1); SODIUM 140 mmol/L (136-145)
--- NOTE | 2017-05-24 08:32 | PN ---
Progress Note, Physician Chief Complaint: POD #3 s/p back surgery - Current Medication List Current Medications: Active Medications Docusate Sodium (Colace -) 100 mg PO TID RAY Hydromorphone HCl (Dilaudid Terrazzo Polisher Helper -) 10 mg FURNACE COMBUSTION ANALYST FURNACE COMBUSTION ANALYST RAY PRN Reason: Protocol Stop: 05/28/17 10:44 Last Admin: 05/24/17 07:51 Dose: Not Given Lorazepam (Ativan Injection -) 1 mg IVPUSH TID PRN PRN Reason: MUSCLE SPASMS Morphine Sulfate (Morphine Sulfate) 4 mg IVPUSH Q4H PRN PRN Reason: PAIN LEVEL 4 - 6 Nicotine (Nicoderm Patch -) 14 mg TD DAILY RAY Ondansetron HCl (Zofran Injection) 4 mg IVPUSH Q6H PRN PRN Reason: NAUSEA AND/OR VOMITING - Objective Vital Signs: Vital Signs Temperature 99.5 F 05/24/17 06:34 Pulse Rate 90 05/24/17 06:34 Respiratory Rate 20 05/24/17 06:34 Blood Pressure 135/73 05/24/17 06:34 O2 Sat by Pulse Oximetry (%) 94 L 05/23/17 21:00 Labs: CBC, BMP 05/24/17 06:30 Assessment/Plan Pain better after alterations to FURNACE COMBUSTION ANALYST. Will add one dose each of ofirmev and toradol
[2017-05-24] MEDS ORDERED: ACETAMINOPHEN 1000 MG/100 ML VIAL (NON FORMULARY) IVPB ONE (08:33)
[2017-05-24] MEDS ORDERED: KETOROLAC TROMETHAMINE 30 MG/1 ML VIAL IVPUSH ONE (08:33)
[2017-05-24 09:00] LABS: ANION GAP 13 (8-16); BLOOD UREA NITROGEN 11 mg/dL (7-18); CALCIUM 8.2 mg/dL (8.5-10.1); CO2 24 mmol/L (21-32); CREATININE 0.6 mg/dL (0.7-1.3); GLUCOSE,RANDOM 86 mg/dL (74-106)
[2017-05-24] MEDS ORDERED: POLYETHYLENE GLYCOL 3350 119 GM BTL PO SCH (10:30)
[2017-05-24] MEDS: NICOTINE 14 MG/24 HOURS TOPICAL PATCH TD SCH (10:41)
[2017-05-24] MEDS: SODIUM CHLORIDE 1,000 ML IV SCH (10:41)
--- NOTE | 2017-05-24 12:52 | PN ---
Teaching Attending Note Name of Resident: Myke Choi ATTENDING PHYSICIAN STATEMENT I saw and evaluated the patient. I reviewed the resident's note and discussed the case with the resident. I agree with the resident's findings and plan as documented. SUBJECTIVE: Patient complains of constipation. OBJECTIVE: Vital Signs Period Temp Pulse Resp BP Sys/David Pulse Ox Last 24 Hr 97.6 F-99.5 F 84-102 19-24 116-141/68-89 94 HEART: S1S2, RRR LUNGS: Clear ABDOMEN: Soft, non-tender, non-distended, normal BS EXTREMITIES: No edema Laboratory Results - last 24 hr 05/24/17 05/24/17 06:30 06:30 WBC 16.3 H RBC 3.65 L Hgb 11.0 L Hct 32.2 L MCV 88.0 MCH 30.2 MCHC 34.3 RDW 13.1 Plt Count 239 MPV 7.7 Neutrophils % 70.9 Lymphocytes % 17.6 D Monocytes % 10.3 H Eosinophils % 0.8 D Basophils % 0.4 Sodium 140 Potassium 3.7 Chloride 103 Carbon Dioxide 24 Anion Gap 13 BUN 11 Creatinine 0.6 L Random Glucose 86 Calcium 8.2 L Current Medications Generic Name Dose Route Start Last Admin Trade Name Freq PRN Reason Stop Dose Admin Docusate Sodium 100 mg 05/24/17 14:00 Colace - PO TID RAY Hydromorphone HCl 10 mg 05/24/17 07:37 05/24/17 10:46 Dilaudid Group Therapist - HANDKERCHIEF SAMPLE CLERK 05/28/17 10:44 10 mg HANDKERCHIEF SAMPLE CLERK RAY Administration Protocol Sodium Chloride 1,000 mls @ 42 mls/hr 05/24/17 10:30 05/24/17 10:41 Normal Saline - IV 42 mls/hr ASDIR RAY Administration Lorazepam 1 mg 05/24/17 07:37 Ativan Injection - IVPUSH TID PRN MUSCLE SPASMS Morphine Sulfate 4 mg 05/24/17 07:37 Morphine Sulfate IVPUSH Q4H PRN PAIN LEVEL 4 - 6 Nicotine 14 mg 05/24/17 10:00 05/24/17 10:41 Nicoderm Patch - TD 14 mg DAILY RAY Administration Ondansetron HCl 4 mg 05/24/17 07:37 Zofran Injection IVPUSH Q6H PRN NAUSEA AND/OR VOMITING Polyethylene Glycol 17 gm 05/24/17 10:30 04/05/18 10:41 Miralax (For Daily Use) - PO 17 grams DAILY RAY Administration ASSESSMENT AND PLAN: This is a 62 year old man with no significant history who was admitted to the ICU after back surgery for spinal stenosis. 1. Thoracic and lumbar spinal stenosis - s/p L2-L4 removal of hardware, T12 and L1 laminectomies, T10-S1 fusion on - Continue pain control - Physical therapy 2. Nicotine dependence - Continue nicotine patch 3. Constipation, chronic - Patient reports using Miralax at home - Continue Colace and add Miralax
--- NOTE | 2017-05-24 13:38 | PN ---
Physical Exam: SUBJECTIVE: Patient seen and examined at bedside. Pain controlled. Patient remains on FOOD SERVICE WORKER. OBJECTIVE: Vital Signs Period Temp Pulse Resp BP Sys/David Pulse Ox Last 24 Hr 97.6 F-99.5 F 84-102 19-24 116-141/68-89 94 GENERAL: The patient is awake, alert, and fully oriented, in no acute distress. HEAD: Normal with no signs of trauma. NECK: Trachea midline, full range of motion, supple. LUNGS: Breath sounds equal, clear to auscultation bilaterally, no wheezes, no crackles, no accessory muscle use. HEART: Regular rate and rhythm, S1, S2 without murmur, rub or gallop. ABDOMEN: Soft, nontender, nondistended, normoactive bowel sounds, no guarding, no rebound, no hepatosplenomegaly, no masses. EXTREMITIES: 2+ pulses, warm, well-perfused, no edema. NEUROLOGICAL: Cranial nerves II through X grossly intact. Normal speech, gait not observed. Sensation intact b/l PSYCH: Normal mood, normal affect. SKIN: Warm, dry, normal turgor, no rashes or lesions noted Laboratory Results - last 24 hr 05/24/17 05/24/17 06:30 06:30 WBC 16.3 H RBC 3.65 L Hgb 11.0 L Hct 32.2 L MCV 88.0 MCH 30.2 MCHC 34.3 RDW 13.1 Plt Count 239 MPV 7.7 Neutrophils % 70.9 Lymphocytes % 17.6 D Monocytes % 10.3 H Eosinophils % 0.8 D Basophils % 0.4 Sodium 140 Potassium 3.7 Chloride 103 Carbon Dioxide 24 Anion Gap 13 BUN 11 Creatinine 0.6 L Random Glucose 86 Calcium 8.2 L Active Medications Generic Name Dose Route Start Last Admin Trade Name Freq PRN Reason Stop Dose Admin Docusate Sodium 100 mg 05/24/17 14:00 Colace - PO TID RAY Hydromorphone HCl 10 mg 05/24/17 07:37 05/24/17 10:46 Dilaudid Powdered Sugar Supervisor - FOOD SERVICE WORKER 05/28/17 10:44 10 mg FOOD SERVICE WORKER RAY Administration Protocol Sodium Chloride 1,000 mls @ 42 mls/hr 05/24/17 10:30 05/24/17 10:41 Normal Saline - IV 42 mls/hr ASDIR RAY Administration Lorazepam 1 mg 05/24/17 07:37 Ativan Injection - IVPUSH TID PRN MUSCLE SPASMS Morphine Sulfate 4 mg 05/24/17 07:37 Morphine Sulfate IVPUSH Q4H PRN PAIN LEVEL 4 - 6 Nicotine 14 mg 05/24/17 10:00 05/24/17 10:41 Nicoderm Patch - TD 14 mg DAILY RAY Administration Ondansetron HCl 4 mg 05/24/17 07:37 Zofran Injection IVPUSH Q6H PRN NAUSEA AND/OR VOMITING Polyethylene Glycol 17 gm 05/24/17 10:30 05/24/17 10:41 Miralax (For Daily Use) - PO 17 grams DAILY RAY Administration ASSESSMENT/PLAN: The patient is a 62 yo m w/ no PMH admitted to ICU for monitoring s/p ESSIE L2-L4 , T12 and L1 laminectomies, T10-S1 PISF. with Dr. Lee. #POD1 ESSIE L2-L4, T12 and L1 laminectomies, T10-S1 PISF. -Management as per Dr. Lee: -Pain control as per anaesthesia team. -Mechanical DVT PPx. only: COURT's, SCD's. -Incentive spirometry -pulmonary toilet. -PT and OOB to chair -drain w/ moderate output -BCX negative, UCX pending -c/w nicotine patch -Patient has not had BM since surgery, has chronic constipation and on miralax at home -Will add miralax -patient on colace #FEN -no fluids indicated -monitor lytes -soft diet #Prophy -mechanical DVT prophy as per Dr. Lee #Dispo -admit to med-surg Visit type - Emergency Visit Emergency Visit: Yes ED Registration Date: 05/21/17 Care time: The patient presented to the Emergency Department on the above date and was hospitalized for further evaluation of their emergent condition. - New Patient This patient is new to me today: No - Critical Care Critical Care patient: No
[2017-05-24] MEDS ORDERED: SODIUM CHLORIDE 250 ML IV STA (16:59)
[2017-05-25] MEDS: HYDROmorphone *PCA* 10MG/50ML DISP.SYRIN PCA SCH ×4 (04:15→13:52)
[2017-05-25] MEDS: DOCUSATE SODIUM 100 MG CAPSULE (FP) PO SCH ×3 (05:47→22:32)
[2017-05-25 08:40] LABS: HEMOGLOBIN 9.9 GM/dL (11.7-16.9); MCH 30.4 pg (25.7-33.7); MCHC 34.2 g/dl (32.0-35.9); MEAN CELL VOLUME 88.9 fl (80-96); MEAN PLT VOLUME 7.5 fl (7.5-11.1); PLATELET COUNT 264 K/MM3 (134-434); RBC 3.26 M/mm3 (4.00-5.60); RDW 13.4 % (11.9-15.9); WHITE BLOOD COUNT 13.2 K/mm3 (4.0-10.0)
[2017-05-25 08:53] LABS: CHLORIDE 104 mmol/L (98-107); POTASSIUM 3.7 mmol/L (3.5-5.1); SODIUM 140 mmol/L (136-145)
[2017-05-25 09:03] LABS: ANION GAP 6 (8-16); BLOOD UREA NITROGEN 12 mg/dL (7-18); CO2 30 mmol/L (21-32); CREATININE 0.6 mg/dL (0.7-1.3); GLUCOSE,RANDOM 81 mg/dL (74-106)
[2017-05-25] MEDS: SODIUM CHLORIDE 1,000 ML IV SCH (10:24)
[2017-05-25] MEDS: POLYETHYLENE GLYCOL 3350 119 GM BTL PO SCH ×2 (10:24→22:33)
[2017-05-25] MEDS: NICOTINE 14 MG/24 HOURS TOPICAL PATCH TD SCH (10:24)
[2017-05-25] MEDS ORDERED: PT OWN MED DRAWER 7, Y5N ONE (13:48)
[2017-05-25] MEDS ORDERED: MAGNESIUM CITRATE 300 ML BOTTLE PO ONE (14:01)
--- NOTE | 2017-05-25 14:05 | PN ---
Progress Note (short form) - Note Progress Note: Anesthesia MANAGER STONE round Pat seen and examined. Post op day 4, S/P L spine surgery. Pat has been c/o pain. Reports pain scale 9/10. Pat in bed, somnolent. VSS. Responds adequately to questions. Pain not controlled. A/P: Continue MANAGER STONE, change the setting. D.C continuos dose. Increase demand dose. Please See order. Asked the primary to add Caldolor and tylenol Around the clock. will assesss tomorrow.
[2017-05-25] MEDS ORDERED: IBUPROFEN 800 MG/8 ML IJ IVPB PRN (14:06)
--- NOTE | 2017-05-25 14:12 | PN ---
Physical Exam: SUBJECTIVE: Patient seen and examined at bedside. Patient states that pain is controlled. per nurse, the patient is still in pain on current meds. Per the patient he has not had a BM yet. OBJECTIVE: Vital Signs Period Temp Pulse Resp BP Sys/David Pulse Ox Last 24 Hr 97.6 F-98.9 F 18-88 18-22 94-128/58-78 95-98 GENERAL: The patient is awake, alert, and fully oriented, in no acute distress. HEAD: Normal with no signs of trauma. NECK: Trachea midline, full range of motion, supple. LUNGS: Breath sounds equal, clear to auscultation bilaterally, no wheezes, no crackles, no accessory muscle use. HEART: Regular rate and rhythm, S1, S2 without murmur, rub or gallop. ABDOMEN: Soft, tenderness to palpation on right side of abdomen. nondistended, normoactive bowel sounds, no guarding, norebound, no hepatosplenomegaly, no masses. EXTREMITIES: 2+ pulses, warm, well-perfused, no edema. NEUROLOGICAL: Cranial nerves II through X grossly intact. Normal speech, gait not observed. SKIN: Warm, dry, normal turgor, no rashes or lesions noted Laboratory Results - last 24 hr 05/25/17 05/25/17 07:00 07:00 WBC 13.2 H RBC 3.26 L Hgb 9.9 L Hct 29.0 L MCV 88.9 MCH 30.4 MCHC 34.2 RDW 13.4 Plt Count 264 MPV 7.5 Sodium 140 Potassium 3.7 Chloride 104 Carbon Dioxide 30 D Anion Gap 6 L BUN 12 Creatinine 0.6 L Random Glucose 81 Calcium 8.0 L Active Medications Generic Name Dose Route Start Last Admin Trade Name Freq PRN Reason Stop Dose Admin Acetaminophen 650 mg 05/25/17 14:15 Tylenol - PO Q6H RAY Docusate Sodium 100 mg 05/24/17 14:00 05/25/17 13:52 Colace - PO 100 mg TID RAY Administration Hydromorphone HCl 10 mg 05/25/17 13:26 05/25/17 13:52 Dilaudid Feed Inspection Supervisor - TUBULAR RIVETER 05/28/17 10:44 Not Given TUBULAR RIVETER RAY Protocol Sodium Chloride 1,000 mls @ 42 mls/hr 05/24/17 10:30 05/25/17 10:24 Normal Saline - IV Not Given ASDIR RAY Ibuprofen 800 mg 05/25/17 17:00 Caldolor Injection - IVPB Q6H RAY Nicotine 14 mg 05/24/17 10:00 05/25/17 10:24 Nicoderm Patch - TD 14 mg DAILY RAY Administration Ondansetron HCl 4 mg 05/24/17 07:37 Zofran Injection IVPUSH Q6H PRN NAUSEA AND/OR VOMITING Polyethylene Glycol 17 gm 05/25/17 10:00 05/25/17 10:24 Miralax (For Daily Use) - PO 17 grams BID RAY Administration Senna 2 tab 05/25/17 22:00 Senna - PO HS PRN CONSTIPATION ASSESSMENT/PLAN: The patient is a 62 yo m w/ no PMH admitted to ICU for monitoring s/p ESSIE L2-L4 , T12 and L1 laminectomies, T10-S1 PISF. with Dr. Lee. #POD 4 ESSIE L2-L4, T12 and L1 laminectomies, T10-S1 PISF. -Management as per Dr. Lee: -Mechanical DVT PPx. only: COURT's, SCD's. -Incentive spirometry -pulmonary toilet. -PT and OOB to chair -drain w/ moderate output -BCX negative, UCX negative -c/w nicotine patch -Pain control as per anaesthesia: -Patient remains on TUBULAR RIVETER. d/c continuous dose, increased loading dose -removed narcotics for breakthrough pain -tylenol and caldolor around the clock as per anaesthesia -Patient has not had BM since surgery, has chronic constipation and on miralax at home -increased miralax to BID -patient on colace TID -added senna x2 HS #FEN -no fluids indicated -monitor lytes -soft diet #Prophy -mechanical DVT prophy as per Dr. Lee #Dispo -admit to med-surg Visit type - Emergency Visit Emergency Visit: Yes ED Registration Date: 05/21/17 Care time: The patient presented to the Emergency Department on the above date and was hospitalized for further evaluation of their emergent condition. - New Patient This patient is new to me today: No - Critical Care Critical Care patient: No
[2017-05-25] MEDS: ACETAMINOPHEN 325 MG TABLET (FP) PO SCH ×2 (14:22→20:58)
[2017-05-25] MEDS: IBUPROFEN 800 MG/8 ML IJ IVPB SCH ×2 (16:05→22:32)
--- NOTE | 2017-05-25 17:29 | PN ---
Teaching Attending Note Name of Resident: Myke Choi ATTENDING PHYSICIAN STATEMENT I saw and evaluated the patient. I reviewed the resident's note and discussed the case with the resident. I agree with the resident's findings and plan as documented. SUBJECTIVE: Patient continues to complain of constipation. OBJECTIVE: Vital Signs Period Temp Pulse Resp BP Sys/David Pulse Ox Last 24 Hr 97.6 F-98.9 F 18-88 16-22 92-128/50-78 95-98 HEART: S1S2, RRR LUNGS: Clear ABDOMEN: Soft, non-tender, non-distended, normal BS EXTREMITIES: No edema Laboratory Results - last 24 hr 05/25/17 05/25/17 07:00 07:00 WBC 13.2 H RBC 3.26 L Hgb 9.9 L Hct 29.0 L MCV 88.9 MCH 30.4 MCHC 34.2 RDW 13.4 Plt Count 264 MPV 7.5 Sodium 140 Potassium 3.7 Chloride 104 Carbon Dioxide 30 D Anion Gap 6 L BUN 12 Creatinine 0.6 L Random Glucose 81 Calcium 8.0 L Current Medications Generic Name Dose Route Start Last Admin Trade Name Freq PRN Reason Stop Dose Admin Acetaminophen 650 mg 05/25/17 14:15 05/25/17 14:22 Tylenol - PO 650 mg Q6H RAY Administration Docusate Sodium 100 mg 05/24/17 14:00 05/25/17 13:52 Colace - PO 100 mg TID RAY Administration Hydromorphone HCl 10 mg 05/25/17 13:26 05/25/17 13:52 Dilaudid Transformation Analyst - VORTEX OPERATOR 05/28/17 10:44 Not Given VORTEX OPERATOR RAY Protocol Sodium Chloride 1,000 mls @ 42 mls/hr 05/24/17 10:30 05/25/17 10:24 Normal Saline - IV Not Given ASDIR RAY Ibuprofen 800 mg 05/25/17 17:00 05/25/17 16:05 Caldolor Injection - IVPB 800 mg Q6H-IV RAY Administration Nicotine 14 mg 05/24/17 10:00 05/25/17 10:24 Nicoderm Patch - TD 14 mg DAILY RAY Administration Ondansetron HCl 4 mg 05/24/17 07:37 Zofran Injection IVPUSH Q6H PRN NAUSEA AND/OR VOMITING Polyethylene Glycol 17 gm 05/25/17 10:00 05/25/17 10:24 Miralax (For Daily Use) - PO 17 grams BID RAY Administration Senna 2 tab 05/25/17 22:00 Senna - PO HS PRN CONSTIPATION ASSESSMENT AND PLAN: This is a 62 year old man with no significant history who was admitted to the ICU after back surgery for spinal stenosis. 1. Thoracic and lumbar spinal stenosis - s/p L2-L4 removal of hardware, T12 and L1 laminectomies, T10-S1 fusion on - Continue pain control - VORTEX OPERATOR continuous dose discontinued demand dose increased, and Caldolor added - Continue physical therapy 2. Nicotine dependence - Continue nicotine patch 3. Constipation, chronic - Continue Colace, Miralax - Add Senna - Mag citrate x 1
[2017-05-25] MEDS ORDERED: SENNOSIDES 8.6MG TABLET (FP) PO PRN (22:00)
[2017-05-25] MEDS: SENNOSIDES 8.6MG TABLET (FP) PO SCH (22:32)
[2017-05-26] MEDS: ACETAMINOPHEN 325 MG TABLET (FP) PO SCH ×4 (01:16→20:30)
[2017-05-26] MEDS: IBUPROFEN 800 MG/8 ML IJ IVPB SCH ×4 (02:13→10:04)
[2017-05-26] MEDS: HYDROmorphone *PCA* 10MG/50ML DISP.SYRIN PCA SCH (03:03)
[2017-05-26] MEDS: DOCUSATE SODIUM 100 MG CAPSULE (FP) PO SCH ×3 (05:07→21:21)
[2017-05-26 08:28] LABS: BASO % 0.9 % (0-2.0); EOS % 2.8 % (0-4.5); HEMATOCRIT 27.3 % (35.4-49); HEMOGLOBIN 9.5 GM/dL (11.7-16.9); LYMPH % 32.9 % (8-40); MEAN CELL VOLUME 88.7 fl (80-96); MEAN PLT VOLUME 7.2 fl (7.5-11.1); MONO % 9.4 % (3.8-10.2); PLATELET COUNT 281 K/MM3 (134-434); RBC 3.08 M/mm3 (4.00-5.60); RDW 13.3 % (11.9-15.9); WHITE BLOOD COUNT 10.2 K/mm3 (4.0-10.0)
[2017-05-26] MEDS ORDERED: IBUPROFEN 400 MG TABLET (FP) PO PRN (09:36)
--- NOTE | 2017-05-26 09:46 | PN ---
Progress Note, Physician Chief Complaint: Pt still having pain but did improve with adjustments to DISTRICT PLANT ENGINEER. No complications. - Current Medication List Current Medications: Active Medications Acetaminophen (Tylenol -) 650 mg PO Q6H [facility] Last Admin: 05/26/17 08:38 Dose: 650 mg Docusate Sodium (Colace -) 100 mg PO TID [facility] Last Admin: 05/26/17 05:07 Dose: 100 mg Sodium Chloride (Normal Saline -) 1,000 mls @ 42 mls/hr IV ASDIR [facility] Last Admin: 05/25/17 10:24 Dose: Not Given Ibuprofen (Motrin -) 800 mg PO Q8H PRN PRN Reason: FEVER Nicotine (Nicoderm Patch -) 14 mg TD DAILY [facility] Last Admin: 05/25/17 10:24 Dose: 14 mg Ondansetron HCl (Zofran Injection) 4 mg IVPUSH Q6H PRN PRN Reason: NAUSEA AND/OR VOMITING Oxycodone HCl (Roxicodone -) 10 mg PO Q3H PRN PRN Reason: PAIN LEVEL 4 - 6 Oxycodone HCl (Oxycontin -) 10 mg PO BID [facility] Polyethylene Glycol (Miralax (For Daily Use) -) 17 gm PO BID [facility] Last Admin: 05/25/17 22:33 Dose: 17 grams Senna (Senna -) 2 tab PO HS [facility] Last Admin: 05/25/17 22:32 Dose: 2 tab - Objective Vital Signs: Vital Signs Temperature 97.9 F 05/26/17 06:00 Pulse Rate 74 05/26/17 06:00 Respiratory Rate 18 05/26/17 06:00 Blood Pressure 123/74 05/26/17 06:00 O2 Sat by Pulse Oximetry (%) 96 05/25/17 21:00 Constitutional: Yes: Well Nourished, No Distress, Calm Musculoskeletal: Yes: Back Pain Neurological: Yes: WNL, Alert, Oriented Labs: CBC, BMP 05/26/17 06:30 05/25/17 07:00 Assessment/Plan POD#5 s/p Removal of hardware L2-4, T11-12 laminectomy, posterior instrumentation, fusion T10-S1. Pain better controlled. Transition to oral medicine preparing for rehab. D/C caldolor and DISTRICT PLANT ENGINEER. Start Oxycontin 10mg BID, Oxycodone 10mg q3h prn. D/C from anesthesia care. Call if needed.
[2017-05-26] MEDS: oxyCODONE HCL 10 MG SUSTAINED ACTING TABLET PO SCH ×3 (10:30→21:22)
[2017-05-26] MEDS: POLYETHYLENE GLYCOL 3350 119 GM BTL PO SCH ×2 (10:30→21:23)
[2017-05-26] MEDS: NICOTINE 14 MG/24 HOURS TOPICAL PATCH TD SCH (10:38)
[2017-05-26] MEDS: SODIUM CHLORIDE 1,000 ML IV SCH ×2 (10:47→13:18)
[2017-05-26] MEDS: oxyCODONE HCL 5 MG TABLET PO PRN ×2 (11:38→18:55)
--- NOTE | 2017-05-26 13:23 | PN ---
Physical Exam: SUBJECTIVE: Patient seen and examined. He is ambulating. Pain is better controlled. OBJECTIVE: Vital Signs Period Temp Pulse Resp BP Sys/David Pulse Ox Last 24 Hr 97.7 F-98.2 F 61-84 16-20 92-127/50-77 96-98 GENERAL: The patient is awake, alert, and fully oriented, in no acute distress. LUNGS: Breath sounds equal, clear to auscultation bilaterally, no wheezes, no crackles, no accessory muscle use. HEART: Regular rate and rhythm, S1, S2 without murmur, rub or gallop. ABDOMEN: Soft, nontender, nondistended, normoactive bowel sounds, no guarding, no rebound, no hepatosplenomegaly, no masses. EXTREMITIES: 2+ pulses, warm, well-perfused, no edema. Laboratory Results - last 24 hr 05/26/17 06:30 WBC 10.2 H RBC 3.08 L Hgb 9.5 L Hct 27.3 L MCV 88.7 MCH 31.0 MCHC 35.0 RDW 13.3 Plt Count 281 MPV 7.2 L Neutrophils % 54.0 D Lymphocytes % 32.9 D Monocytes % 9.4 Eosinophils % 2.8 D Basophils % 0.9 Active Medications Generic Name Dose Route Start Last Admin Trade Name Freq PRN Reason Stop Dose Admin Acetaminophen 650 mg 05/25/17 14:15 05/26/17 08:38 Tylenol - PO 650 mg Q6H RAY Administration Docusate Sodium 100 mg 05/24/17 14:00 05/26/17 05:07 Colace - PO 100 mg TID RAY Administration Sodium Chloride 1,000 mls @ 42 mls/hr 05/24/17 10:30 05/26/17 10:47 Normal Saline - IV Not Given ASDIR RAY Ibuprofen 800 mg 05/26/17 09:36 05/26/17 11:39 Motrin - PO 800 mg Q8H PRN Administration FEVER Nicotine 14 mg 05/24/17 10:00 05/26/17 10:38 Nicoderm Patch - TD 14 mg DAILY RAY Administration Ondansetron HCl 4 mg 05/24/17 07:37 Zofran Injection IVPUSH Q6H PRN NAUSEA AND/OR VOMITING Oxycodone HCl 10 mg 05/26/17 09:37 04/07/18 11:38 Roxicodone - PO 10 mg Q3H PRN Administration PAIN LEVEL 4 - 6 Oxycodone HCl 20 mg 05/26/17 12:47 Oxycontin - PO BID [facility] Polyethylene Glycol 17 gm 05/25/17 10:00 05/26/17 10:30 Miralax (For Daily Use) - PO Not Given BID RAY Senna 2 tab 05/25/17 22:00 05/25/17 22:32 Senna - PO 2 tab HS RAY Administration ASSESSMENT/PLAN: This is a 62 year old man with no significant history who was admitted to the ICU after back surgery for spinal stenosis. 1. 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 Nicotine dependence - Continue nicotine patch 3. Constipation, chronic - Had BM yesterday - Continue Colace, Senna, Miralax Visit type - Emergency Visit Emergency Visit: No - New Patient This patient is new to me today: No - Critical Care Critical Care patient: No - Discharge Referral Referred to [facility] No
--- NOTE | 2017-05-26 14:07 | PN ---
Progress Note (short form) - Note Progress Note: POD#5 Doing well Minimal incisional pain. No leg pain. Wound inspection dry no cellulitis Drains removed. PLAN D/C home see in office 2 weeks PT Mobilize FWBAT Walk lie down minimal sitting. Pain mx Continue sedative and opioids
[2017-05-26] MEDS: SENNOSIDES 8.6MG TABLET (FP) PO SCH (21:21)
[2017-05-27] MEDS: ACETAMINOPHEN 325 MG TABLET (FP) PO SCH ×4 (02:01→21:34)
[2017-05-27] MEDS: oxyCODONE HCL 5 MG TABLET PO PRN ×2 (06:23→15:33)
[2017-05-27] MEDS: DOCUSATE SODIUM 100 MG CAPSULE (FP) PO SCH ×3 (06:24→21:34)
[2017-05-27] MEDS ORDERED: PT OWN MED DRAWER 7, Y5N ONE (09:54)
[2017-05-27] MEDS: NICOTINE 14 MG/24 HOURS TOPICAL PATCH TD SCH (09:56)
[2017-05-27] MEDS: oxyCODONE HCL 10 MG SUSTAINED ACTING TABLET PO SCH ×2 (09:56→21:34)
[2017-05-27] MEDS: SODIUM CHLORIDE 1,000 ML IV SCH (09:56)
[2017-05-27] MEDS: POLYETHYLENE GLYCOL 3350 119 GM BTL PO SCH ×2 (09:56→21:35)
--- NOTE | 2017-05-27 11:40 | PN ---
Physical Exam: SUBJECTIVE: Patient seen and examined. He is complaining of back pain. OBJECTIVE: Vital Signs Period Temp Pulse Resp BP Sys/David Pulse Ox Last 24 Hr 98.1 F-98.5 F 60-80 20-20 113-127/47-69 98-100 GENERAL: The patient is awake, alert, and fully oriented, in no acute distress. LUNGS: Breath sounds equal, clear to auscultation bilaterally, no wheezes, no crackles, no accessory muscle use. HEART: Regular rate and rhythm, S1, S2 without murmur, rub or gallop. ABDOMEN: Soft, nontender, nondistended, normoactive bowel sounds, no guarding, no rebound, no hepatosplenomegaly, no masses. EXTREMITIES: 2+ pulses, warm, well-perfused, no edema. Active Medications Generic Name Dose Route Start Last Admin Trade Name Freq PRN Reason Stop Dose Admin Acetaminophen 650 mg 05/25/17 14:15 05/27/17 08:29 Tylenol - PO 650 mg Q6H RAY Administration Docusate Sodium 100 mg 05/24/17 14:00 05/27/17 06:24 Colace - PO 100 mg TID RAY Administration Ibuprofen 800 mg 05/26/17 09:36 05/26/17 11:39 Motrin - PO 800 mg Q8H PRN Administration FEVER Nicotine 14 mg 05/24/17 10:00 05/27/17 09:56 Nicoderm Patch - TD 14 mg DAILY RAY Administration Ondansetron HCl 4 mg 05/24/17 07:37 Zofran Injection IVPUSH Q6H PRN NAUSEA AND/OR VOMITING Oxycodone HCl 10 mg 05/26/17 09:37 05/27/17 06:23 Roxicodone - PO 10 mg Q3H PRN Administration PAIN LEVEL 4 - 6 Oxycodone HCl 20 mg 05/26/17 12:47 05/27/17 09:56 Oxycontin - PO 20 mg BID RAY Administration Polyethylene Glycol 17 gm 05/25/17 10:00 05/27/17 09:56 Miralax (For Daily Use) - PO Not Given BID RAY Senna 2 tab 05/25/17 22:00 05/26/17 21:21 Senna - PO 2 tab HS RAY Administration ASSESSMENT/PLAN: This is a 62 year old man with no significant history who was admitted to the ICU after back surgery for spinal stenosis. 1. Thoracic and lumbar spinal stenosis - s/p L2-L4 removal of hardware, T12 and L1 laminectomies, T10-S1 fusion on - On OxyContin, oxycodone as needed for pain control - Continue physical therapy - today he walked 85' with rolling walker with PT who feels he would benefit from short term rehab 2. Nicotine dependence - Continue nicotine patch 3. Constipation, chronic - Continue Colace, Senna, Miralax Visit type - Emergency Visit Emergency Visit: No - New Patient This patient is new to me today: No - Critical Care Critical Care patient: No - Discharge Referral Referred to [facility] No
[2017-05-27] MEDS: SENNOSIDES 8.6MG TABLET (FP) PO SCH (21:34)
[2017-05-28] MEDS: ACETAMINOPHEN 325 MG TABLET (FP) PO SCH ×3 (01:17→14:04)
[2017-05-28] MEDS: DOCUSATE SODIUM 100 MG CAPSULE (FP) PO SCH ×2 (06:14→14:04)
[2017-05-28] MEDS: oxyCODONE HCL 10 MG SUSTAINED ACTING TABLET PO SCH (10:41)
[2017-05-28] MEDS: NICOTINE 14 MG/24 HOURS TOPICAL PATCH TD SCH (11:45)
[2017-05-28] MEDS: POLYETHYLENE GLYCOL 3350 119 GM BTL PO SCH (11:46)
[2017-05-28 12:04] VITALS: BP 118/64; PULSE 81; TEMP 98.1
--- NOTE | 2017-05-28 19:02 | PN ---
Teaching Attending Note Name of Resident: Myke Choi ATTENDING PHYSICIAN STATEMENT I saw and evaluated the patient. I reviewed the resident's note and discussed the case with the resident. I agree with the resident's findings and plan as documented. SUBJECTIVE: Patient ambulating without complaints. OBJECTIVE: Vital Signs Period Temp Pulse Resp BP Sys/David Pulse Ox Last 24 Hr 98.1 F-99.1 F 64-87 18-20 117-118/56-64 99-99 HEART: S1S2, RRR LUNGS: Clear ABDOMEN: Soft, non-tender, non-distended, normal BS EXTREMITIES: No edema ASSESSMENT AND PLAN: This is a 62 year old man with no significant history who was admitted to the ICU after back surgery for spinal stenosis. 1. Thoracic and lumbar spinal stenosis - s/p L2-L4 removal of hardware, T12 and L1 laminectomies, T10-S1 fusion on - On OxyContin, oxycodone as needed for pain control - Ambulated 300 feet with cane and has walker 2. Nicotine dependence - Continue nicotine patch 3. Constipation, chronic - Continue Colace, Senna, Miralax 4. Ok for discharge home
--- NOTE | 2017-05-28 21:19 | DS ---
Physical Exam: SUBJECTIVE: Patient seen and examined at bedside. States pain is controlled and that he is able to walk with cane today. OBJECTIVE: Vital Signs Period Temp Pulse Resp BP Sys/David Pulse Ox Last 24 Hr 98.1 F-99.1 F 64-87 18-20 117-118/56-64 99 PHYSICAL EXAM GENERAL: The patient is awake, alert, and fully oriented, in no acute distress. NECK: Trachea midline, full range of motion, supple. LUNGS: Breath sounds equal, clear to auscultation bilaterally, no wheezes, no crackles, no accessory muscle use. HEART: Regular rate and rhythm, S1, S2 without murmur, rub or gallop. ABDOMEN: Soft, nontender, nondistended, normoactive bowel sounds, no guarding, no rebound, no hepatosplenomegaly, no masses. EXTREMITIES: 2+ pulses, warm, well-perfused, no edema. NEUROLOGICAL: Cranial nerves II through X grossly intact. Normal speech, gait not observed. back with dressing in place. so signs of erythema or tenderness. PSYCH: Normal mood, normal affect. SKIN: Warm, dry, normal turgor, no rashes or lesions noted. LABS HOSPITAL COURSE: Date of Admission:05/21/17 The patient is a 62 yo m w/ no PMH who was admitted to the ICU s/p ESSIE L2-L4, T12 and L1 laminectomies, T10-S1 PISF. w/ Dr. Lee. His immediate post op pain was controlled with a dilaudid AWS DEVELOPER, morphine, flexeril, toradol and ativan. The patient recovered well and was transferred to the general medical floors. He was weaned off of the AWS DEVELOPER and changed to PO tylenol and oxycodone. He was seen by physical therapy and walked over 100 feet with both a walker and a cane separately. The patient was discharged home with a prescription for 20mg oxycodone BID for 5 days as well as tylenol for breakthrough pain. He was referred to [facility] for help with dressing changes. The patient was instructed to follow up with Dr. Lee 2 weeks after discharge. The patient was advised to follow up with his PCP within 1 week of discharge. Date of Discharge: 05/28/17 Minutes to complete discharge: 60 Discharge Summary Reason For Visit: SCIATICA, LEFT SIDE Condition: Improved - Instructions Diet, Activity, Other Instructions: You were admitted for recovery after back surgery with Dr. Lee. Please follow with your primary care physician within 1 week of discharge home. If you do not have one, information for Dr. Christian has been provided for you. You should follow up with Dr. Lee in 2 weeks to make sure you are healing correctly. We are sending you home with some medication to help with your pain. You can take 20mg of Oxycodone twice per day for pain. Please do not take more than 2 pills in a single day. Please be advised that this medication can make you constipated. If you remain constipated despite the use of laxatives, please call your doctor. You can also take Tylenol every 6 hours for pain. If you begin to experience chest pain, shortness of breath, abdominal pain, fever, worsening back pain or weakness in the legs, please call your doctor or return to the emergency department. keep the incision clean and dry May take shower, change the dressing after No heavy lifting Activity as tolerated regular diet Referrals: Rui Christian MD [Staff Physician] - Marbin Lee MD [Staff Physician] - 2 Weeks Disposition: HOME - Home Medications Comprehensive Discharge Medication List: Ambulatory Orders Atorvastatin Ca [Lipitor] 20 mg PO DAILY 05/17/17 Acetaminophen [Tylenol .Regular Strength -] 650 mg PO Q6H #28 tablet 05/28/17 oxyCODONE SR [Oxycontin] 20 mg PO BID #10 tab.er.12h MDD 2 05/28/17 This patient is new to me today: No Emergency Visit: No Critical Care patient: No - Discharge Referral Referred to [facility] Med [facility] No
== END 2017-05-28 14:26 | disposition home or self-care (01) | DRG 304 ==
LOC: JSAMEDAYSX 08:44 → EDSTATUS 11:00 → JICU 19:52 → J8W 05-23 20:43
PROVIDERS: ADMIT Orthopaedic Surgery Orthopaedic Surgery of the Spine; ATTEND Internal Medicine
PROC: 00NY0ZZ Release Lumbar Spinal Cord, Open Approach (ICD-10-PCS; 2017-05-21)
PROC: 0RGA071 Fusion of Thoracolumbar Vertebral Joint with Autologous Tissue Substitute, Posterior Approach, Posterior Column, Open Approach (ICD-10-PCS; 2017-05-21)
PROC: 0SG0071 Fusion of Lumbar Vertebral Joint with Autologous Tissue Substitute, Posterior Approach, Posterior Column, Open Approach (ICD-10-PCS; 2017-05-21)
PROC: 07DR0ZZ Extraction of Iliac Bone Marrow, Open Approach (ICD-10-PCS; 2017-05-21)
PROC: 4A11X4G Monitoring of Peripheral Nervous Electrical Activity, Intraoperative, External Approach (ICD-10-PCS; 2017-05-21)
PROC: 00NX0ZZ Release Thoracic Spinal Cord, Open Approach (ICD-10-PCS; principal; 2017-05-21 11:00)
DX: M48.061 Spinal stenosis, lumbar region without neurogenic claudication (principal); M48.05 Spinal stenosis, thoracolumbar region; Y83.8 Other surgical procedures as the cause of abnormal reaction of the patient, or of later complication, without mention of misadventure at the time of the procedure; F17.210 Nicotine dependence, cigarettes, uncomplicated; K59.00 Constipation, unspecified; M40.205 Unspecified kyphosis, thoracolumbar region
CPT/HCPCS: 36415; 71045-TC-FY; 76000-TC-FY; 80048; 80053; 83735; 84100; 85025; 85027; 86850; 86900; 86901; 87040; 87086; 88300-TC; 94010; 94760; 97116-GP; 97161-GP; J0131; J1170; J1644; J7030